=== PATIENT | male | born 1935 | race Hispanic/Latino ===

== ENCOUNTER 2019-11-23 15:18 | Inpatient (IN) | payer OTHER ==
[~2019-11-23] VITALS: Ht 182.9 cm; Wt 105.3 kg
--- NOTE | 2019-11-23 17:00 | NUR ---
ADMISSION PT RECEIV[place] FROM [facility] [place] [facility] [place] [facility]. A/O X 4. NO SOB. NO DISTRESS NOTED. O2 NC @ 2L. DENIES CHEST PAIN OR DISCOMFORT. DENIES PALPITATIONS. TELE: SR. DENIES N/V AND/OR DIARRHEA. PT TO BE NPO AFTER MIDNIGHT, PLAN FOR [facility] IN AM. PT STATES UNDERSTANDING. PT ORIENTED TO RM. UP AD MILIND. INSTRUCTED TO CALL FOR ASSISTANCE. CALL STEPHEN W/IN REACH.
[2019-11-23 17:08] VITALS: BP 127/69
[2019-11-23 19:44] VITALS: BP 152/73
[2019-11-23] MEDS ORDERED: CLOP75TA32 PO (19:48)
[2019-11-23] MEDS ORDERED: MONT10TA26 PO (19:48)
[2019-11-23] MEDS ORDERED: AMLO5TAB9 PO (19:48)
[2019-11-23] MEDS ORDERED: AEC81 PO (19:48)
[2019-11-23] MEDS ORDERED: ATOR-2 PO (19:48)
[2019-11-23] MEDS ORDERED: MELA3TAB41 PO (19:48)
[2019-11-23] MEDS ORDERED: PRED20TA3 PO (19:48)
[2019-11-23] MEDS ORDERED: TAMS-1 PO (19:48)
[2019-11-23] MEDS ORDERED: ISOS30TA6 PO (19:48)
[2019-11-23] MEDS ORDERED: LOSA50TA64 PO (19:48)
[2019-11-23] MEDS ORDERED: ONDANSETRON HCL 4 MG/2 ML VIAL IV PRN (21:00)
[2019-11-23] MEDS ORDERED: ACETAMINOPHEN 325 MG TAB PO PRN (21:00)
[2019-11-23] MEDS ORDERED: GUAIFENESIN-DM 200/20 MG 10 ML PO PRN (21:00)
[2019-11-23] MEDS ORDERED: ATORVASTATIN CALCIUM 40 MG TABLET PO SCH (21:00)
[2019-11-23] MEDS ORDERED: GLUCAGON 1MG KIT 1 MG ML IM PRN (21:00)
[2019-11-23] MEDS ORDERED: NITROGLYCERIN 0.4 MG SL TAB SL PRN (21:00)
[2019-11-23] MEDS ORDERED: DEXTROSE 50%-WATER 50 ML DISP.SYRIN IV PRN (21:00)
[2019-11-23] MEDS: FAMOTIDINE/PF 20 MG/2 ML VIAL IV SCH (22:06)
[2019-11-23] MEDS: IPRATROPIUM/ALBUTEROL SULFATE 3 ML SOLUTION IH SCH (22:07)
[2019-11-23] MEDS: INSULIN HUMULIN R 100 UNIT/ML 3ML SQ SCH (22:08)
[2019-11-24] VITALS (17 sets, daily range): BP systolic 121–152; BP diastolic 55–82
[2019-11-24] MEDS: IPRATROPIUM/ALBUTEROL SULFATE 3 ML SOLUTION IH SCH ×4 (00:04→14:33)
[2019-11-24 04:40] LABS: BASOPHILS % (AUTO) 0.2 % (0.0-5.0); MEAN CORPUSCULAR HEMOGLOBIN 31.3 pg (27.0-33.0); MEAN CORPUSCULAR HGB CONC 32.3 g/dL (32.0-36.0); MONOCYTES % (AUTO) 5.7 % (3.0-13.0); PLATELET COUNT (AUTO) 152 K/uL (130-400); RED BLOOD CELL COUNT(AUTO) 3.61 MIL/uL (4.50-6.20); RED CELL DISTRIBUTION WIDTH 13.7 % (11.0-15.5); WHITE BLOOD COUNT (AUTO) 9.1 K/uL (4.8-10.8)
[2019-11-24 04:56] LABS: INR 0.95 (0.85-1.15); PARTIAL THROMBOPLASTIN TIME 25.2 SEC (26.3-35.5); PROTHROMBIN TIME 10.3 SEC (9.6-11.6)
[2019-11-24 05:10] LABS: HEMOGLOBIN A1C 7.5 % (4.0-6.0)
[2019-11-24 05:22] LABS: ALBUMIN 2.9 g/dL (3.5-5.0); BILIRUBIN,TOTAL 0.2 mg/dL (0.2-1.0); CREATININE 1.6 mg/dL (0.5-1.5); POTASSIUM 4.3 mmol/L (3.5-5.1); THYROID STIMULATING HORMONE 2.76 uIU/mL (0.36-3.74); TOTAL PROTEIN, SERUM 5.9 g/dL (6.0-8.3)
[2019-11-24] MEDS: INSULIN HUMULIN R 100 UNIT/ML 3ML SQ SCH ×3 (05:59→16:37)
--- NOTE | 2019-11-24 07:30 | NUR ---
AM ASSESSMENT PT LAYING IN BED, RESTING. A/O X 4. NO SOB. NO DISTRESS NOTED. DENIES CHEST PAIN OR DISCOMFORT. DENIES PALPITATIONS. TELE: SR. DENIES N/V AND/OR DIARRHEA. NPO STATUS REINFORCED. PT TO HAVE C BY DR HENSLEY. UP AD MILIND. INSTRUCTED TO CALL FOR ASSISTANCE. CALL STEPHEN W/IN REACH.
[2019-11-24] MEDS ORDERED: AMLODIPINE BESYLATE 5 MG TAB PO SCH ×2 (09:00)
[2019-11-24] MEDS: FAMOTIDINE/PF 20 MG/2 ML VIAL IV SCH (09:00)
[2019-11-24] MEDS ORDERED: PREDNISONE 20 MG TABLET PO SCH ×2 (09:00)
[2019-11-24] MEDS ORDERED: CLOPIDOGREL BISULFATE 75 MG TAB PO SCH ×2 (09:00)
[2019-11-24] MEDS ORDERED: ASPIRIN 81MG TAB.CHEW PO SCH (09:00)
[2019-11-24] MEDS ORDERED: ISOSORBIDE MONO 30MG TAB SR PO SCH (09:00)
[2019-11-24] MEDS ORDERED: LOSARTAN 50 MG TABLET PO SCH ×2 (09:00)
[2019-11-24] MEDS ORDERED: ASPIRIN 81 MG EC TAB PO SCH ×2 (09:00→14:19)
[2019-11-24] MEDS ORDERED: TAMSULOSIN HCL 0.4 MG CAP.ER.24H PO SCH ×2 (09:00)
[2019-11-24] MEDS ORDERED: IOHEXOL 350 MG/ML 100ML INFUS..BTL IV ONE (09:51)
[2019-11-24] MEDS ORDERED: IOHEXOL-350 50ML VIAL IV ONE (09:51)
[2019-11-24] MEDS ORDERED: BIVALIRUDIN 250 MG/VIAL IV ONE (09:52)
[2019-11-24] MEDS ORDERED: FENTANYL CITRATE PF 50 MCG/1 ML 2ML VIAL ONE (09:53)
[2019-11-24] MEDS ORDERED: MIDAZOLAM HCL 1 MG/ML 2ML VIAL ONE (09:53)
[2019-11-24] MEDS ORDERED: NITROGLYCERIN 2 MG/VIAL VIAL IV ONE (10:00)
[2019-11-24] MEDS ORDERED: NICARDIPINE HCL 25 MG/10 ML ML IV ONE (10:00)
--- NOTE | 2019-11-24 10:00 | NUR ---
STATUS PT TAKEN TO [facility] VIA BED. TELE ALYSE REMOVED.
[2019-11-24] MEDS ORDERED: HEPARIN SODIUM 1000UNIT/ML 10ML VIAL ONE (10:26)
[2019-11-24] MEDS ORDERED: LIDOCAINE HCL 2% 20ML ONE (10:30)
[2019-11-24] MEDS ORDERED: ASPIRIN 325MG EC TAB 325 MG TABLET.DR PO ONE (11:22)
[2019-11-24] MEDS ORDERED: CLOPIDOGREL BISULFATE 300 MG TAB ONE (11:22)
--- NOTE | 2019-11-24 12:00 | NUR ---
STATUS PT BACK FROM [facility] VIA BED. S/P LHC W/STENT X 1 PLACEMENT. RT RADIAL APPROACH. TR BAND IN PLACE. NO BLEEDING, NO HEMATOMA NOTED. 12 ML OF AIR IN TR BAND PER REPORT. BILATERAL STRONG RADIAL PULSES. GOOD CAPILLARY REFILL. RT FINGERS INK & WARM TO TOUCH. PULSE OX APPLIED TO RT FINGER, 94% SATs. RT ARM ELEVATED ON PILLOWS. PT DENIES CHEST PAIN OR DISCOMFORT @ THIS TIME. 0.9% NACL STARTED @ 150 ML/HR X 5 HRS. PT TO RESUME DIET. INSTRUCTED TO CALL FOR ASSISTANCE. CALL STEPHEN W/IN REACH.
[2019-11-24] MEDS ORDERED: SODIUM CHLORIDE 0.9% 1000ML 750 ML IV SCH (14:30)
--- NOTE | 2019-11-24 16:37 | NUR ---
DCP CM called pt's room no answered, called pt's daughter on facesheet, spoke to Hermila Ramsey discussed dc plans. Pt is semi-independent with ADL's prior to admission, lives at home alone, daughter and son Ryan Ramsey lives close by. Denies any other equipments/services. Feels safe to go back home, son and daughter able to assist with transportation and needs as necessary. DC plan to home once stable. CM to cont to follow up. Addendum: 11/24/19 at 1639 by BRIAN RAMSEY LVN CM Amended: Links added.
--- NOTE | 2019-11-24 17:50 | NUR ---
DISCHARGE VERBAL & WRITTEN DISCHARGE INSTRUCTIONS REVIEWED & GIVEN TO PT. QUESTIONS ENCOURAGED & CLARIFIED. PROPER CARE & ACTIVITY AFTER LHC W/STENT REVIEWED. NEW PRESCRIBED MEDICATIONS REVIEWED. PRESCRIPTION GIVEN TO PT; SIGNED COPY PLACED IN CHART. TELE ALYSE REMOVED. IV X 2 DC'D. PT TO GATHER PERSONAL BELONGINGS. PT TO NOTIFY STAFF WHEN FAMILY ARRIVES TO HOSPITAL TO TAKE PT HOME.
--- NOTE | 2019-11-24 18:30 | NUR ---
DISCHARGE FAMILY HERE TO TAKE PT HOME. PT TAKEN TO PRIVATE VEHICLE VIA WC BY [facility] PCP. NO DISTRESS NOTED.
[2019-11-24] MEDS ORDERED: MONTELUKAST SODIUM 10 MG TAB PO SCH ×2 (21:00)
[2019-11-24] MEDS ORDERED: NON-FORMULARY MEDICATION 1 EACH (Atorvastatin Calcium 80 MG) PO SCH (21:00)
[2019-11-24] MEDS ORDERED: MELATONIN 3 MG PO SCH (21:00)
== END 2019-11-24 18:30 | disposition home or self-care (01) | DRG 247 ==
LOC: 4CH 16:50
PROVIDERS: ADMIT Internal Medicine; ATTEND Internal Medicine
PROC: 027034Z Dilation of Coronary Artery, One Artery with Drug-eluting Intraluminal Device, Percutaneous Approach (ICD-10-PCS; principal; 2019-11-24)
PROC: B2111ZZ Fluoroscopy of Multiple Coronary Arteries using Low Osmolar Contrast (ICD-10-PCS; 2019-11-24)
DX: T82.855A Stenosis of coronary artery stent, initial encounter (principal); I25.110 Atherosclerotic heart disease of native coronary artery with unstable angina pectoris; Y83.8 Other surgical procedures as the cause of abnormal reaction of the patient, or of later complication, without mention of misadventure at the time of the procedure; Y92.89 Other specified places as the place of occurrence of the external cause; J44.9 Chronic obstructive pulmonary disease, unspecified; E11.22 Type 2 diabetes mellitus with diabetic chronic kidney disease; N18.9 Chronic kidney disease, unspecified; N40.0 Benign prostatic hyperplasia without lower urinary tract symptoms; I12.9 Hypertensive chronic kidney disease with stage 1 through stage 4 chronic kidney disease, or unspecified chronic kidney disease; Z87.11 Personal history of peptic ulcer disease; Z95.0 Presence of cardiac pacemaker; E66.9 Obesity, unspecified; E78.5 Hyperlipidemia, unspecified; G47.33 Obstructive sleep apnea (adult) (pediatric); I08.0 Rheumatic disorders of both mitral and aortic valves; Z68.31 Body mass index [BMI] 31.0-31.9, adult
CPT/HCPCS: 36415; 71045; 80053; 80061; 82948; 83036; 84443; 85025; 85347; 85610; 85730; 93005; 93454; 94640; 94664; 99156; 99157; C1769; C1887; C9600; G0378; J0583; J1644; J2250; J3010; J3490; Q9967